=== PATIENT | female | born 1960 | race Two or more races ===

== ENCOUNTER 2016-08-11 10:13 | Emergency (ER) | payer MEDICAID ==
[~2016-08-11] VITALS: Ht 154.9 cm; Wt 80.3 kg
[~2016-08-11 10:13] MED LIST: AMIT25TA9; BUTACAP; CARI350T21; DEXL60CA3; DOCU-137; ERGO1CAP6; FENO160T8; HYDR-2595; LORA-653; LOVA40TA72; MORP1TAB12; NAPR-607; PREG75CA; [UNRECOGNIZED DRUG - CODE]
[2016-08-11 11:01] LABS: Basophils # (auto) 0 uL; Basophils % (auto) 0.3 % (0.0-2.0); Eosinophils # (auto) 0.2 uL; Eosinophils % (auto) 3.8 % (0.0-7.0); Hematocrit 41.6 % (36.0-46.0); Hemoglobin 13.6 g/dL (12.2-16.2); Lymphocytes # (auto) 1.7 uL; Lymphocytes % (auto) 26.1 % (10.0-50.0); Mean Corpuscular Hemoglobin 27.1 pg (28.0-32.0); Mean Corpuscular Hgb Conc. 32.7 g/dL (32.0-36.0); Mean Corpuscular Volume 82.9 fL (80.0-100.0); Mean Platelet Volume 10.2 fL (7.4-10.4); Monocytes # (auto) 0.4 uL; Monocytes % (auto) 6.1 % (0.0-12.0); Neutrophils % (auto) 63.7 % (37.0-80.0); Platelet Count (auto) 269 10^3/uL (140-450); Red Cell Distribution Width 17.5 % (11.6-16.0); White Blood Cell 6.3 10^3/uL (4.4-10.8)
[2016-08-11 11:01] LABS: Urine Bilirubin Negative (Negative); Urine Blood Negative /uL (Negative); Urine Color Yellow (Yellow); Urine Glucose Normal (Normal); Urine Ketone Negative (Negative); Urine Mucus FEW (None Seen); Urine Nitrite Negative (Negative); Urine RBC 1 /hpf (0 - 4); Urine Squamous Epithelial Cell FEW /hpf (<5)
[2016-08-11] MEDS ORDERED: SODIUM CHLORIDE 0.9% 1,000 ML IV ONE (11:19)
[2016-08-11] MEDS ORDERED: METOCLOPRAMIDE HCL 5MG/ml INJ 2ml VIAL IV ONE (11:30)
[2016-08-11] MEDS ORDERED: KETOROLAC TROMETH 30 MG/ML 1ML VIAL IV ONE (11:30)
[2016-08-11 11:43] LABS: Albumin 3.3 g/dL (3.4-5.0); BUN/Creatinine Ratio 10.2; Bilirubin, Total 0.5 mg/dL (0.2-1.0); Calcium 8.8 mg/dL (8.5-10.1); Potassium 3.6 mmol/L (3.5-5.1); Total Protein 7.5 g/dL (6.4-8.2)
[2016-08-11 12:00] LABS: Amylase 44 U/L (25-115)
[2016-08-11] MEDS ORDERED: cefTRIAXone 1GM/50ML D5W 50 ML IV ONE (12:15)
[2016-08-11 12:19] VITALS: BP 106/83
== END 2016-08-11 14:14 | disposition home or self-care (01) ==
LOC: ER 10:17
DX: N39.0 Urinary tract infection, site not specified (principal); K57.90 Diverticulosis of intestine, part unspecified, without perforation or abscess without bleeding; D25.9 Leiomyoma of uterus, unspecified; K42.9 Umbilical hernia without obstruction or gangrene; E44.1 Mild protein-calorie malnutrition; Z68.33 Body mass index [BMI] 33.0-33.9, adult; E78.5 Hyperlipidemia, unspecified
CPT/HCPCS: 36415; 74176; 80053; 81001; 82150; 83690; 83735; 84443; 85025; 93005; 96361; 96365; 96375; 99285; J0696; J1885; J2765; J7030

== ENCOUNTER → 2019-01-03 | Day surgery (SDC) | payer MEDICAID ==
[2019-01-02 12:53] LABS: Hemoglobin 13.6 g/dL (12.2-16.2); Nucleated Red Blood Cells % 0.1 %
[2019-01-02 12:56] LABS: Basophils # (auto) 0.1 uL; Basophils % (auto) 0.8 % (0.0-2.0); Eosinophils # (auto) 0.2 uL; Eosinophils % (auto) 2.8 % (0.0-7.0); Hematocrit 41.3 % (36.0-46.0); Lymphocytes # (auto) 2.2 uL; Mean Corpuscular Hemoglobin 26.4 pg (28.0-32.0); Mean Corpuscular Volume 79.9 fL (80.0-100.0); Monocytes # (auto) 0.6 uL; Monocytes % (auto) 7.6 % (0.0-12.0); Neutrophils # (auto) 5.3 uL; Neutrophils % (auto) 62.8 % (37.0-80.0); Platelet Count (auto) 290 10^3/uL (140-450); Red Blood Cells 5.17 10^6/uL (4.0-5.20); White Blood Cell 8.5 10^3/uL (4.4-10.8)
[2019-01-02 13:15] LABS: INR < 0.93 (0.9-1.15); Partial Thromboplastin Time 25.1 sec (23.64-32.05)
[2019-01-02 13:19] LABS: Urine Bacteria NONE SEEN /hpf (None Seen); Urine Blood Negative /uL (Negative); Urine WBC 15 /hpf (0 - 5)
[2019-01-02 13:32] LABS: Albumin 3.6 g/dL (3.4-5.0); BUN/Creatinine Ratio 12.1
[2019-01-02 13:33] LABS: Bilirubin, Total 0.3 mg/dL (0.2-1.0); Total Protein 7.8 g/dL (6.4-8.2)
[~2019-01-03] VITALS: Ht 149.9 cm; Wt 83.9 kg
[~2019-01-03] MED LIST changes: -AMIT25TA9; -BUTACAP; -CARI350T21; +CHOL200031 PO; -DOCU-137; +DOCU1CAP46; +DexAMETHasone SOD PHOS 10MG/1ML VIAL INJ ONE; -ERGO1CAP6; -HYDR-2595; +HYDROmorphone HCL 2 MG/ML VL IV PRN; +KETOROLAC TROMETH 30 MG/ML 1ML VIAL IV ONE; +KETOROLAC TROMETH 30 MG/ML 1ML VIAL ONE; +LABETALOL HCL 5 MG/ML 4ML SYRINGE IV PRN; +LIDO5DIS21 TOP; -LORA-653; -LOVA40TA72; +MEPERIDINE HCL (25 MG/ML) 1ML VIAL ONE; +METOCLOPRAMIDE HCL 5MG/ml INJ 2ml VIAL IV ONE; +MIDAZOLAM HCL 1MG/1ML-2 ML VIAL IV PRN; +MIDAZOLAM HCL 1MG/1ML-2 ML VIAL ONE; +MORP1CAP9 PO; -MORP1TAB12; +MORPHINE SULF INJ 2 MG/ML SYRINGE 1ML IV ONE; +MORPHINE SULF INJ 2 MG/ML SYRINGE 1ML ONE; +MORPHINE SULFATE 4 MG/ML SYR/VIAL IV PRN; -NAPR-607; +NAPR500T31; +NEOMYCIN-BACITRACIN-POLYM 15GM TOP OINT TOP ONE; +ONDANSETRON HCL 4 MG/2 ML VIAL IV PRN; +PREG50CA PO; -PREG75CA; +PROPOFOL 10 MG/ML 20 ML IV ONE; +ROPIVACAINE 0.5% (5MG/ML) 20ML AMPULE IJ ONE; +TIZA4CAP PO; +TRAZ50TA2 PO; +VENL37.588 PO; -[UNRECOGNIZED DRUG - CODE]; +[UNRECOGNIZED DRUG - CODE] PO; +ceFAZolin 1GM VL IV ONE; +ceFAZolin 1GM/50ML 50 ML IV ONE; +ePHEDrine SULFATE 50 MG/ML AMP IV PRN; +fentaNYL CITRATE 100 MCG/2 ML VL ONE
[2019-01-03 08:41] VITALS: BP 117/77
== END | disposition home or self-care (01) ==
LOC: SUR 06:09
PROVIDERS: ATTEND Podiatrist Foot & Ankle Surgery
DX: M79.671 Pain in right foot (principal); M79.672 Pain in left foot; E88.2 Lipomatosis, not elsewhere classified; D17.24 Benign lipomatous neoplasm of skin and subcutaneous tissue of left leg; I10 Essential (primary) hypertension; K21.9 Gastro-esophageal reflux disease without esophagitis; F41.9 Anxiety disorder, unspecified; F32.9 Major depressive disorder, single episode, unspecified; Z68.37 Body mass index [BMI] 37.0-37.9, adult; Z90.49 Acquired absence of other specified parts of digestive tract; Z96.651 Presence of right artificial knee joint; Z98.890 Other specified postprocedural states
CPT/HCPCS: 27619; 36415; 80053; 81001; 85025; 85610; 85730; 88304; 93005; J0690; J1100; J1885; J2175; J2250; J2270; J2704; J2765; J2795; J3010; L3260

== ENCOUNTER 2019-05-30 13:42 | Emergency (ER) | payer MEDICAID ==
[~2019-05-30] VITALS: Ht 149.9 cm; Wt 86.2 kg
[~2019-05-30 13:42] MED LIST changes: -DexAMETHasone SOD PHOS 10MG/1ML VIAL INJ ONE; -HYDROmorphone HCL 2 MG/ML VL IV PRN; -KETOROLAC TROMETH 30 MG/ML 1ML VIAL IV ONE; -KETOROLAC TROMETH 30 MG/ML 1ML VIAL ONE; -LABETALOL HCL 5 MG/ML 4ML SYRINGE IV PRN; -MEPERIDINE HCL (25 MG/ML) 1ML VIAL ONE; -METOCLOPRAMIDE HCL 5MG/ml INJ 2ml VIAL IV ONE; -MIDAZOLAM HCL 1MG/1ML-2 ML VIAL IV PRN; -MIDAZOLAM HCL 1MG/1ML-2 ML VIAL ONE; -MORPHINE SULF INJ 2 MG/ML SYRINGE 1ML IV ONE; -MORPHINE SULF INJ 2 MG/ML SYRINGE 1ML ONE; -MORPHINE SULFATE 4 MG/ML SYR/VIAL IV PRN; -NEOMYCIN-BACITRACIN-POLYM 15GM TOP OINT TOP ONE; -ONDANSETRON HCL 4 MG/2 ML VIAL IV PRN; -PROPOFOL 10 MG/ML 20 ML IV ONE; -ROPIVACAINE 0.5% (5MG/ML) 20ML AMPULE IJ ONE; -ceFAZolin 1GM VL IV ONE; -ceFAZolin 1GM/50ML 50 ML IV ONE; -ePHEDrine SULFATE 50 MG/ML AMP IV PRN; -fentaNYL CITRATE 100 MCG/2 ML VL ONE
[2019-05-30 14:27] LABS: Eosinophils # (auto) 0.4 uL; Hemoglobin 13.6 g/dL (12.2-16.2); Lymphocytes # (auto) 2.1 uL; Monocytes # (auto) 0.5 uL; Monocytes % (auto) 6.4 % (0.0-12.0); White Blood Cell 8.5 10^3/uL (4.4-10.8)
[2019-05-30 14:29] LABS: Basophils # (auto) 0 uL; Basophils % (auto) 0.5 % (0.0-2.0); Eosinophils % (auto) 4.3 % (0.0-7.0); Hematocrit 42.4 % (36.0-46.0); Lymphocytes % (auto) 24.5 % (10.0-50.0); Mean Corpuscular Hemoglobin 26.1 pg (28.0-32.0); Mean Corpuscular Volume 81.7 fL (80.0-100.0); Neutrophils # (auto) 5.5 uL; Neutrophils % (auto) 64.3 % (37.0-80.0); Platelet Count (auto) 310 10^3/uL (140-450); Red Blood Cells 5.19 10^6/uL (4.0-5.20); Red Cell Distribution Width 16.4 % (11.8-14.3)
[2019-05-30 14:43] LABS: Albumin 3.5 g/dL (3.4-5.0); Anion Gap 5 (5-15); Blood Urea Nitrogen 4 mg/dL (7-18); Calcium 9.1 mg/dL (8.5-10.1); Carbon Dioxide 26 mmol/L (21-32); Chloride 106 mmol/L (98-107); Glucose 116 mg/dL (74-106); Sodium 137 mmol/L (136-145)
[2019-05-30 14:47] LABS: Alanine Aminotransferase 53 U/L (13-56); Alkaline Phosphatase 111 U/L (45-117); Aspartate Aminotransferase 49 U/L (15-37); BUN/Creatinine Ratio 6.5; Bilirubin, Total 0.5 mg/dL (0.2-1.0); GFR African American 128 mL/min; GFR Non-African American 105 mL/min
[2019-05-30 22:36] LABS: INR 1.01 (0.9-1.15); Partial Thromboplastin Time 27.3 sec (23.64-32.05)
[2019-05-30] MEDS ORDERED: IOHEXOL 350 MG/ML 100ML IJ ONE (22:48)
[2019-05-31] MEDS ORDERED: MORPHINE SULF INJ 2 MG/ML SYRINGE 1ML IV ONE
[2019-05-31] MEDS ORDERED: ONDANSETRON HCL 4 MG/2 ML VIAL IV ONE
[2019-05-31 01:00] VITALS: BP 128/78
== END 2019-05-31 01:16 | disposition home or self-care (01) ==
LOC: ER 13:42
DX: S16.1XXA Strain of muscle, fascia and tendon at neck level, initial encounter (principal); K44.9 Diaphragmatic hernia without obstruction or gangrene; R07.89 Other chest pain; E78.5 Hyperlipidemia, unspecified; K21.0 Gastro-esophageal reflux disease with esophagitis; Z98.51 Tubal ligation status; Z79.899 Other long term (current) drug therapy; W45.8XXA Other foreign body or object entering through skin, initial encounter; Y93.89 Activity, other specified; Y92.89 Other specified places as the place of occurrence of the external cause; Y99.8 Other external cause status
CPT/HCPCS: 36415; 71045; 71275; 72125; 80053; 84484; 85025; 85379; 85610; 85730; 93005; 96374; 96375; 99285; J2270; J2405; Q9967

== ENCOUNTER 2020-02-07 13:28 | Inpatient (IN) | payer MEDICAID ==
[~2020-02-07] VITALS: Ht 149.9 cm; Wt 80.6 kg
[~2020-02-07 13:28] MED LIST changes: -DEXL60CA3; +DEXL60CA4
[2020-02-07] MEDS ORDERED: SODIUM CHLORIDE 0.9% 1,000 ML IVB ONE (14:15)
[2020-02-07] MEDS ORDERED: PROMETHAZINE HCL 25 MG/ML 1ML IV PRN (14:15)
[2020-02-07 15:13] LABS: Eosinophils # (auto) 0 10 ^3/uL (0-0.8); Eosinophils % (auto) 0.1 % (0.0-7.0); Lymphocytes # (auto) 1.3 10 ^3/uL (0.4-5.4); Mean Corpuscular Hgb Conc. 32.2 g/dL (32.0-36.0); Monocytes # (auto) 0.5 10 ^3/uL (0-1.3); White Blood Cell 15.7 10^3/uL (4.4-10.8)
[2020-02-07 15:17] LABS: Basophils # (auto) 0.1 10 ^3/uL (0-0.2); Basophils % (auto) 0.4 % (0.0-2.0); Hematocrit 44.6 % (36.0-46.0); Hemoglobin 14.3 g/dL (12.2-16.2); Lymphocytes % (auto) 8.1 % (10.0-50.0); Mean Corpuscular Hemoglobin 25.7 pg (28.0-32.0); Mean Corpuscular Volume 79.9 fL (80.0-100.0); Monocytes % (auto) 3.3 % (0.0-12.0); Neutrophils # (auto) 13.8 10 ^3/uL (1.6-8.6); Neutrophils % (auto) 88.1 % (37.0-80.0); Platelet Count (auto) 363 10^3/uL (140-450); Red Blood Cells 5.58 10^6/uL (4.0-5.20); Red Cell Distribution Width 16.2 % (11.8-14.3)
[2020-02-07 15:29] LABS: Albumin 4.3 g/dL (3.4-5.0); Calcium 9.8 mg/dL (8.5-10.1); Magnesium 1.9 mg/dL (1.6-2.6)
[2020-02-07 15:34] LABS: INR 0.99 (0.9-1.15); Partial Thromboplastin Time 23.1 sec (23.0-31.2)
[2020-02-07 15:37] LABS: Total Protein 9.3 g/dL (6.4-8.2)
[2020-02-07 15:39] LABS: Amylase 74 U/L (25-115); Lipase 163 U/L (73-393)
[2020-02-07] MEDS ORDERED: MORPHINE SULF INJ 2 MG/ML SYRINGE 1ML IV ONE ×3 (15:45→20:00)
[2020-02-07] MEDS ORDERED: POTASSIUM CHL 20MEQ/100ML 100 ML IV STA (16:41)
[2020-02-07] MEDS ORDERED: ONDANSETRON HCL 4 MG/2 ML VIAL IV ONE ×2 (16:45→20:00)
[2020-02-07 18:23] LABS: Urine Amorphous Crystal FEW /hpf (None Seen); Urine Bacteria NONE SEEN /hpf (None Seen); Urine Blood TRACE /uL (Negative); Urine Mucus FEW (None Seen); Urine Specific Gravity 1.026 (1.001-1.035); Urine WBC 117 /hpf (0 - 5); Urine WBC Clumps PRESENT /hpf (None Seen)
[2020-02-07 18:35] LABS: Alcohol, Urine < 3.0 mg/dL (0-10); Amphetamine Screen, Urine NEGATIVE (NEGATIVE); Barbiturate Scree,Urine NEGATIVE (NEGATIVE); Benzodiazephine Screen, Urine NEGATIVE (NEGATIVE); Cannabinoid Screen, Urine POSITIVE (NEGATIVE); Cocaine Screen, Urine NEGATIVE (NEGATIVE); Opiate Scree,Urine POSITIVE (NEGATIVE); Phencyclidine Screen, Urine NEGATIVE (NEGATIVE)
[2020-02-07] MEDS ORDERED: cefTRIAXone 1GM/50ML D5W 50 ML IV ONE (18:45)
[2020-02-07] MEDS ORDERED: MORPHINE SULF INJ 2 MG/ML SYRINGE 1ML IV PRN (21:15)
[2020-02-07] MEDS ORDERED: ONDANSETRON HCL 4 MG/2 ML VIAL IV PRN (21:15)
[2020-02-07] MEDS: TIZANIDINE 4 MG PO SCH (22:00)
[2020-02-07] MEDS ORDERED: DOCUSATE SOD 100 MG CAP PO PRN (22:00)
[2020-02-07] MEDS: SODIUM CHLORIDE 0.9% 1,000 ML IV SCH (22:30)
[2020-02-07 22:40] VITALS: BP 132/87
[2020-02-07 23:03] VITALS: BP 132/87
[2020-02-07] MEDS: PREGABALIN 25 MG CAP PO SCH (23:13)
[2020-02-07] MEDS: POTASSIUM CHL 20MEQ/100ML 100 ML IV SCH (23:14)
[2020-02-08] MEDS ORDERED: LORazepam 0.5 MG TAB PO PRN (00:15)
[2020-02-08] MEDS ORDERED: CYCLOBENZAPRINE HCL 10 MG TAB PO PRN (00:15)
[2020-02-08] MEDS ORDERED: MORPHINE SULF INJ 2 MG/ML SYRINGE 1ML IV PRN (00:15)
[2020-02-08] MEDS: MORPHINE SULF 15mg ER tab PO PRN ×2 (00:54→16:10)
[2020-02-08] MEDS: POTASSIUM CHL 20MEQ/100ML 100 ML IV SCH (03:00)
[2020-02-08 05:00] VITALS: BP 124/76
[2020-02-08 06:42] LABS: Basophils # (auto) 0 10 ^3/uL (0-0.2); Basophils % (auto) 0.4 % (0.0-2.0); Eosinophils # (auto) 0.1 10 ^3/uL (0-0.8); Eosinophils % (auto) 0.6 % (0.0-7.0); Monocytes # (auto) 0.9 10 ^3/uL (0-1.3)
[2020-02-08 06:45] LABS: Hematocrit 35.9 % (36.0-46.0); Hemoglobin 11.8 g/dL (12.2-16.2); Lymphocytes # (auto) 2.6 10 ^3/uL (0.4-5.4); Lymphocytes % (auto) 26.4 % (10.0-50.0); Mean Corpuscular Hemoglobin 26.6 pg (28.0-32.0); Mean Corpuscular Volume 80.5 fL (80.0-100.0); Monocytes % (auto) 8.8 % (0.0-12.0); Neutrophils # (auto) 6.3 10 ^3/uL (1.6-8.6); Neutrophils % (auto) 63.8 % (37.0-80.0); Nucleated Red Blood Cells % 0.1 %; Platelet Count (auto) 269 10^3/uL (140-450); Red Blood Cells 4.46 10^6/uL (4.0-5.20); Red Cell Distribution Width 16.3 % (11.8-14.3); White Blood Cell 9.8 10^3/uL (4.4-10.8)
[2020-02-08 07:10] LABS: Potassium 3.7 mmol/L (3.5-5.1)
[2020-02-08 07:18] LABS: BUN/Creatinine Ratio 9.1; Calcium 8.5 mg/dL (8.5-10.1); Magnesium 2.1 mg/dL (1.6-2.6)
[2020-02-08 09:00] VITALS: BP 132/84
[2020-02-08] MEDS: TIZANIDINE 4 MG PO SCH (10:00)
[2020-02-08] MEDS ORDERED: cefTRIAXone 1GM/50ML D5W 50 ML IV SCH (10:00)
[2020-02-08] MEDS ORDERED: PANTOPRAZOLE 40 MG TAB PO SCH (10:00)
[2020-02-08] MEDS ORDERED: CHOLECALCIFEROL (VITD3) 2,000 UNIT CAP PO SCH (10:00)
[2020-02-08] MEDS: PREGABALIN 25 MG CAP PO SCH (10:03)
[2020-02-08 13:00] VITALS: BP 137/88
[2020-02-08] MEDS: SODIUM CHLORIDE 0.9% 1,000 ML IV SCH (15:31)
[2020-02-08 16:32] VITALS: BP 134/90
[2020-02-08] MEDS ORDERED: METR500T PO (16:38)
[2020-02-08] MEDS ORDERED: LEVO500T21 PO (16:38)
[2020-02-08 19:35] VITALS: BP 134/90
[2020-02-08] MEDS ORDERED: traZODone HCL 50 MG TAB PO SCH (22:00)
[2020-02-09] MEDS ORDERED: CHOLECALCIFEROL (VITD3) 1,000UNIT=25mCg TAB PO SCH (10:00)
== END 2020-02-08 20:50 | disposition home or self-care (01) | DRG 249 ==
LOC: EDBD 13:28 → ER 13:28 → TELE-WESTW 13:29
PROVIDERS: ADMIT Hospitalist; ATTEND Hospitalist
DX: K52.9 Noninfective gastroenteritis and colitis, unspecified (principal); G62.9 Polyneuropathy, unspecified; N39.0 Urinary tract infection, site not specified; E87.6 Hypokalemia; E78.5 Hyperlipidemia, unspecified; F11.23 Opioid dependence with withdrawal; F12.90 Cannabis use, unspecified, uncomplicated; F41.9 Anxiety disorder, unspecified; G89.4 Chronic pain syndrome; Z82.49 Family history of ischemic heart disease and other diseases of the circulatory system; Z90.49 Acquired absence of other specified parts of digestive tract; K21.9 Gastro-esophageal reflux disease without esophagitis; F32.9 Major depressive disorder, single episode, unspecified
CPT/HCPCS: 36415; 71045; 74176; 80048; 80053; 80307; 81001; 82150; 83690; 83735; 84132; 84484; 85025; 85610; 85730; 87045; 87086; 87177; 87427; 87493; 93005; G0378; J0696; J2405; J3480

== ENCOUNTER 2024-06-21 09:47 | Emergency (ER) | payer MEDICAID ==
[~2024-06-21] VITALS: Ht 149.9 cm; Wt 72.0 kg
[~2024-06-21 09:47] MED LIST changes: +FENO160T; -FENO160T8; +LEVO500T31 PO; +METR500T PO; +NAPR-746; -NAPR500T31; +TRAZ-227 PO; -TRAZ50TA2 PO
[2024-06-21 10:32] LABS: Basophils # (auto) 0 10 ^3/uL (0-0.2); Basophils % (auto) 0.3 % (0.0-2.0); Eosinophils # (auto) 0.2 10 ^3/uL (0-0.8); Hematocrit 48.6 % (36.0-46.0); Hemoglobin 16.4 g/dL (12.2-16.2); Lymphocytes # (auto) 1.3 10 ^3/uL (0.4-5.4); Lymphocytes % (auto) 16.6 % (10.0-50.0); Mean Corpuscular Hemoglobin 29.9 pg (28.0-32.0); Mean Corpuscular Hgb Conc. 33.6 g/dL (32.0-36.0); Mean Corpuscular Volume 88.8 fL (80.0-100.0); Monocytes # (auto) 0.5 10 ^3/uL (0-1.3); Monocytes % (auto) 6.7 % (0.0-12.0); Neutrophils # (auto) 5.7 10 ^3/uL (1.6-8.6); Neutrophils % (auto) 74.4 % (37.0-80.0); Platelet Count (auto) 239 10^3/uL (140-450); Red Blood Cells 5.48 10^6/uL (4.0-5.20); White Blood Cell 7.7 10^3/uL (4.4-10.8)
[2024-06-21 10:46] VITALS: BP 158/86; RESP 21; TEMP 98.3; O2SAT 97
[2024-06-21 11:02] LABS: Chloride 107 mmol/L (98-107); Sodium 140 mmol/L (136-145)
[2024-06-21 11:03] LABS: Anion Gap 8 (5-15); Calcium 10.2 mg/dL (8.7-10.4); Carbon Dioxide 25 mmol/L (20-31)
[2024-06-21 11:10] LABS: Blood Urea Nitrogen 7 mg/dL (9-23); Glucose 147 mg/dL (74-106); Potassium 3.5 mmol/L (3.5-5.1)
[2024-06-21] MEDS: LORazepam 0.5 MG TAB PO ONE (11:12)
--- NOTE | 2024-06-21 11:13 | ED.PDOC ---
Psychiatric HPI Comments A 64 YEAR OLD FEMALE GIANNA PRESENTS TO THE ED WITH CHIEF COMPLAINT OF ANXIETY. PATIENT REPORTS THAT SHE HAS BEEN EXPERIENCING INCREASED ANXIETY WITH ASSOCIATED CHEST TIGHTNESS, TREMORS, LIGHTHEADEDNESS, AND A FAST HEART RATE FOR THE PAST 4 WEEKS. PATIENT RELAYS THAT SHE HAS HISTORY OF ANXIETY AND DEPRESSION, HOWEVER, SHE HAS BEEN OFF OF LORAZEPAM FOR THE PAST 5 YEARS. PATIENT STATES SHE WAS GIVEN A PRESCRIPTION FOR HYDROXYZINE RECENTLY, BUT IT HAS NOT IMPROVED HER ANXIETY. PATIENT DENIES ANY DEPRESSION, SI, HI, DIZZINESS, CHEST PAIN, OR SOB. NO OTHER SYMPTOMS REPORTED AT THIS TIME OF CARE. Chief Complaint: Anxiety Time Seen by MD: 11:07 Primary Care Provider: DEMAR Cullen Notes: Nurses Notes, Medications, Allergies Information Source: Patient Mode of Arrival: EMS Severity: Able to Care for Self, Able to Control Self Severity of Pain: None Severity of Mental Status: Mild Severity of Symptoms: None Timing: Weeks Duration: Since onset Prehospital treatment: None Presents with: Anxiety Ingestion: None Circumstance: Medical Clearance Current substance abuse: None Stressors: None History of: Depression, Anxiety Associated signs and symptoms: Anxiety Past Medical History PAST MEDICAL HISTORY: Anxiety, Depression, High Lipids Surgical History: BTL, Cholecystectomy, PLANNING OFFICIAL History: Denies all PLANNING OFFICIAL Hx Family History Family History: Family hx of HTN Social History Smoker: Non-Smoker Alcohol: Denies ETOH Use Drugs: Marijuana Lives In: Home Constitutional: reports: others (ANXIOUS ); denies: chills, diaphoresis, fatigue, fever, malaise, sweats, weakness EENTM: denies: blurred vision, double vision, ear bleeding, ear discharge, ear drainage, ear pain, ear ringing, eye pain, eye redness, hearing loss, mouth pain, mouth swelling, nasal discharge, nose bleeding, nose congestion, nose pain, photophobia, tearing, throat pain, throat swelling, voice changes, others Respiratory: denies: cough, hemoptysis, orthopnea, SOB at rest, shortness of breath, SOB with excertion, stridor, wheezing, others Cardiovascular: reports: lightheadedness, others (CHEST PRESSURE, TACHYCARDIA); denies: chest pain, dizzy spells, diaphoresis, Dyspnea on exertion, edema, irregular heart beat, left arm pain, palpitations, PND, syncope Gastrointestinal: denies: abdomen distended, abdominal pain, blood streaked bow els, constipated, diarrhea, dysphagia, difficulty swallowing, hematemesis, melena, nausea, poor appetite, poor fluid intake, rectal bleeding, rectal pain, vomiting, others Genitourinary: denies: abnormal vagina bleeding, burning, dyspareunia, dysuria, flank pain, frequency, hematuria, incontinence, pain, , vagina discharge, urgency, others Neurological: reports: tingling, tremors; denies: dizziness, fainting, heada carolyn, left sided numbness, left sided weakness, numbness, paresthesia, pre- existing deficit, right sided numbness, right sided weakness, seizure, speech problems, weakness, others Musculoskeletal: denies: back pain, gout, joint pain, joint swelling, muscle pain, muscle stiffness, neck pain, others Integumetry: denies: bruises, change in color, change in hair/nails, dryness, laceration, lesions, lumps, rash, wounds, others Allergic/Immunocompromised: denies: Difficulty Healing, Frequent Infections, Hives, Itching, others Hematologic/Lymphatic: denies: anemia, blood clots, easy bleeding, easy bruising, swollen glands, others Endocrine: denies: excessive hunger, excessive sweating, excessive thirst, excessive urination, flushing, intolerance to cold, intolerance to heat, unexplained weight gain, unexplained weight loss, others Psychiatric: reports: anxiety; denies: bipolar disorder, depression, hopeless, panic disorder, schizophrenia, sleepless, suicidal, others All Other Systems: Reviewed and Negative Physical Exam General Appearance: No Apparent Distress, Normal, Other (ANXIOUS ) HEENT: Normal ENT Inspection, PERRL/EOMI Neck: Full Range of Motion, Non-Tender, Normal, Normal Inspection Respiratory: Chest Non-Tender, Lungs Clear, No Accessory Muscle Use, No Respiratory Distress, Normal Breath Sounds Cardiovascular: No Edema, No JVD, No Murmur, No Gallop, Normal Peripheral Pulses, Regular Rate/Rhythm Breast Exam: Deferred Gastrointestinal: No Organomegaly, Non Tender, No Pulsatile Mass, Normal Bowel Sounds, Soft Genitalia: Deferred Pelvic: Deferred Rectal: Deferred Extremities: No calf tenderness, Normal capillary refill, Normal inspection, Normal range of motion, Non-tender, No pedal edema Musculoskeletal : Apperance: Normal Neurologic: Alert, drying equipment operator II-XII nml as Tested, No Motor Deficits, Normal Affect, Normal Mood, No Sensory Deficits Cerebellar Function: Normal Reflexes: Normal Skin: Dry, Normal Color, Warm Peripheral Pulses: 2+ carotid (R), 2+ carotid (L) Lymphatic: No Adenopathy EKG EKG : Pulse Rate (adult): 90 [place]: Normal Cardiac Rhythm: NSR Block: None Hypertrophy: None ST: Normal Was a procedure done? Was a procedure done?: No Psych Differential Dx Psych. Differential Dx: Anxiety, Panic Disorder OD Differential Dx: Panic Disorder X-Ray, Labs, Meds, VS Vital Signs Date Time Temp Pulse Resp B/P (MAP) Pulse Ox O2 Delivery O2 Flow Rate FiO2 06/21/24 10:54 90 06/21/24 10:46 95 21 97 Room Air 06/21/24 10:46 98.3 95 21 158/86 (110) 97 98.3 06/21/24 09:56 98.3 95 21 158/86 (110) 97 Lab Test 06/21/24 10:19 Range/Units White Blood Count 7.7 4.4-10.8 10^3/uL Red Blood Count 5.48 H 4.0-5.20 10^6/uL Hemoglobin 16.4 H 12.2-16.2 g/dL Hematocrit 48.6 H 36.0-46.0 % Mean Corpuscular Volume 88.8 80.0-100.0 fL Mean Corpuscular Hemoglobin 29.9 28.0-32.0 pg Mean Corpuscular Hemoglobin Concent 33.6 32.0-36.0 g/dL Red Cell Distribution Width 14.0 11.8-14.3 % Platelet Count 239 140-450 10^3/uL Mean Platelet Volume 9.9 6.9-10.8 fL Neutrophils (%) (Auto) 74.4 37.0-80.0 % Lymphocytes (%) (Auto) 16.6 10.0-50.0 % Monocytes (%) (Auto) 6.7 0.0-12.0 % Eosinophils (%) (Auto) 2.0 0.0-7.0 % Basophils (%) (Auto) 0.3 0.0-2.0 % Neutrophils # (Auto) 5.7 1.6-8.6 10 ^3/uL Lymphocytes # (Auto) 1.3 0.4-5.4 10 ^3/uL Monocytes # (Auto) 0.5 0-1.3 10 ^3/uL Eosinophils # (Auto) 0.2 0-0.8 10 ^3/uL Basophils # (Auto) 0 0-0.2 10 ^3/uL Nucleated Red Blood Cells 0.0 % Sodium Level 140 136-145 mmol/L Potassium Level 3.5 3.5-5.1 mmol/L Chloride Level 107 98-107 mmol/L Carbon Dioxide Level 25 20-31 mmol/L Anion Gap 8 5-15 Blood Urea Nitrogen 7 L 9-23 mg/dL Creatinine 0.64 0.550-1.02 mg/dL Glomerular Filtration Rate Calc 100 >90 mL/min BUN/Creatinine Ratio 10.9 10.0-20.0 Serum Glucose 147 H 74-106 mg/dL Calcium Level 10.2 8.7-10.4 mg/dL Troponin I High Sensitivity 30 </=34 ng/L Thyroid Stimulating Hormone (TSH) 1.38 0.55-4.78 uIU/mL Current Medications Medications (Trade) Dose Ordered Sig/Slava Route Start Time Stop Time Status Last Admin Lorazepam (Ativan Tablet) 0.5 mg ONCE ONCE PO 06/21/24 11:15 06/21/24 11:16 DC 06/21/24 11:12 X-Ray, Labs, Meds, VS Comment EXTERNAL MEDICAL RECORDS REVIEWED: [NONE] INDEPENDENT HISTORIANS: [NONE] SOCIAL DETERMINANTS OF HEALTH: [NONE] LABS ORDERED: EKG, TROPONIN, TSH, CBC, BMP REVIEWED AND INTERPRETED RESULTS: NONE IMAGING ORDERED: NONE TREATMENTS ORDERED: ATIVAN 0.5MG PO PROCEDURES PERFORMED: NONE CRITICAL CARE TIME: NONE I HAVE DISCUSSED THE PATIENT WITH THE ATTENDING PHYSICIAN DR. HARRISON AND HE Dina PATIÑO WITH THE PATIENT'S PLAN OF CARE AND DISPOSITION. BASED ON HISTORY OF PRESENT ILLNESS, AND PHYSICAL EXAM, PATIENT WILL BE DISCHARGED HOME. DISCUSSED PLAN FOR DISCHARGE HOME WITH RX. MEDICATION WARNINGS GIVEN. SHARED DECISION MAKING: DISCUSSED WITH PATIENT THAT THEIR WORKUP WAS NORMAL. PATIENT INSTRUCTED TO FOLLOW UP WITH PRIMARY CARE PROVIDER IN 1-2 DAYS FOR RE- EVALUATION OF SYMPTOMS. PATIENT VERBALIZES UNDERSTANDING TO RETURN TO ED FOR NEW OR WORSENING SYMPTOMS OR IF FOLLOW UP WITH PCP CANNOT BE OBTAINED. PATIENT FEELS COMFORTABLE GOING HOME AT THIS TIME. ALL QUESTIONS ADDRESSED AT TIME OF DISCHARGE. Time of 1ST Reevaluation: 12:21 Reevaluation 1ST: Improved Patient Education/Counseling: Diagnosis, Treatment, Need For Follow Up Family Education/Counseling: Diagnosis, Treatment, No Family Present Medical Screening: No EMC Exist At This Time Departure 1 Departure Time of Disposition: 12:21 Impression: Primary Impression: Anxiety reaction Disposition: HOME / SELF CARE / HOMELESS Condition: Stable Additional Instructions: FOLLOW-UP WITH PCP IN 1 TO 2 DAYS. TAKE MEDICATIONS PRESCRIBED. RETURN TO ED FOR ANY NEW OR WORSENING SYMPTOMS. e-Prescriptions Lorazepam (ATIVAN TABLET) 0.5 Mg Tb 1 TAB PO BID, #14 TAB Prov: BEKAH ALVARADO 06/21/24 Discharged With: Self, Relative Critical Care Note Critical Care Time?: No Stability Stability form required: No Heart Score Heart Score: Heart Score Response (Comments) Value History N/A 0 EKG N/A 0 Age N/A 0 Risk Factors N/A 0 Troponin N/A 0 Total 0 I personally scribed for BEKAH ALVARADO ([email or web address]) on 06/21/24 at 11:13. Electronically submitted by Derick Sandoval ([email or web address]). BEKAH ALVARADO Jun 21, 2024 11:13
[2024-06-21 11:33] LABS: BUN/Creatinine Ratio 10.9 (10.0-20.0)
[2024-06-21] MEDS ORDERED: LORA-1121 PO (12:22)
[2024-06-21 12:25] VITALS: PULSE 90
--- NOTE | 2024-06-21 14:04 | ECG ---
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
== END 2024-06-21 12:36 | disposition home or self-care (01) ==
LOC: ER 09:47 → EDBD 09:47 → ER 12:36
DX: F41.1 Generalized anxiety disorder (principal); E78.5 Hyperlipidemia, unspecified; Z90.49 Acquired absence of other specified parts of digestive tract; Z98.51 Tubal ligation status
CPT/HCPCS: 36415; 80048; 84443; 84484; 85025; 93005